=== PATIENT | male | born 1990 ===

== ENCOUNTER 2023-09-02 10:55 | Day surgery (SDC) | payer OTHER ==
[~2023-09-02] VITALS: Ht 185.4 cm; Wt 107.7 kg
[2023-09-02] VITALS (7 sets, daily range): BP systolic 90–104; BP diastolic 41–64; PULSE 51–75; TEMP 97.8–98.1
[~2023-09-02 10:55] MED LIST: HYDROmorphone 0.5 MG/0.5 ML SYRINGE IV PRN; LR 1,000 ML IV SCH; Ondansetron 4 MG/2 ML VIAL IV PRN; oxyCODONE/Acetaminophen 5-325 MG TAB PO PRN
--- NOTE | 2023-09-02 11:01 | NUR ---
Pt. arrived to the floor via stretcher. Pt. able to ambulate independently to the bed. Pt. is A&OX3, assessment complete. Pt. rates pain at a 3 on pain scale. Pt. denies pain or other needs, call light within reach.
[2023-09-02] MEDS ORDERED: MOTRIN 800800 MG/TAB PO ×3 (11:08→16:14)
[2023-09-02] MEDS ORDERED: fentaNYL 50 MCG/ML 1 ML SYRINGE/VIAL [PACU/SDC ONLY] IV PRN (11:45)
[2023-09-02] MEDS ORDERED: LR 1,000 ML IV SCH (11:45)
[2023-09-02] MEDS ORDERED: hydrALAZINE 20 MG/ML 1 ML VIAL IV PRN (11:45)
[2023-09-02] MEDS ORDERED: Ondansetron 4 MG/2 ML VIAL IV PRN (11:45)
[2023-09-02] MEDS ORDERED: Meclizine 25 MG TAB PO SCH (11:45)
[2023-09-02] MEDS ORDERED: droPERidol 2.5 MG/ML 2 ML VIAL IV PRN (11:45)
[2023-09-02] MEDS ORDERED: HYDROmorphone 1 MG/1 ML SYRINGE [PACU/SDC ONLY] IV PRN (11:45)
[2023-09-02] MEDS ORDERED: Rocuronium 50 MG/5 ML Multi-Dose VIAL ONE (11:59)
[2023-09-02] MEDS ORDERED: fentaNYL 50 MCG/ML 2 ML VIAL ONE (11:59)
[2023-09-02] MEDS ORDERED: dexAMETHasone 10 MG/ML VIAL ONE (12:00)
[2023-09-02] MEDS ORDERED: Ondansetron 4 MG/2 ML VIAL ONE (12:00)
[2023-09-02] MEDS ORDERED: Ketorolac 30 MG/ML VIAL ONE (12:00)
[2023-09-02] MEDS ORDERED: Glycopyrrolate 0.2 MG/ML 1 ML VIAL ONE (12:00)
[2023-09-02] MEDS ORDERED: Lidocaine PF 2% (20 MG/ML) 5 ML VIAL ONE (12:00)
[2023-09-02] MEDS ORDERED: Topical Skin Adhesive 1 EACH (1 ML) TOP ONE (12:10)
[2023-09-02] MEDS ORDERED: NS 100 ML IV ONE (12:11)
[2023-09-02] MEDS ORDERED: PERCOCET 325 MG1 TA2 PO (13:29)
--- NOTE | 2023-09-02 13:35 | NUR ---
Pt. to the floor. Pt. is A&OX3, assessment wnl. Pt. reports pain to lt. incision at a 5 on pain scale, will give pain meds per orders. PT. denies further needs. Call light within reach.
--- NOTE | 2023-09-02 17:28 | NUR ---
Pt. denies pain. Pt. has met discharge criteria. INT discontinued from rt. ac. Discharge paperwork reviewed and given to the pt. Pt. dressed and escorted out.
== END 2023-09-02 17:28 | disposition home or self-care (01) ==
LOC: EDBD 10:55 → SDCO 10:55 → SURG 10:55 → EDSTATUS 15:06 → SDCO 17:28 → SURG 17:28
DX: K35.80 Unspecified acute appendicitis (principal)
CPT/HCPCS: OP; G0378; G0379; J1100; J1170; J1885; J2405; J2543; J2704; J3010; J7120